=== PATIENT | male | born 1955 | race Caucasian/White ===

== ENCOUNTER 2018-09-10 12:22 | Inpatient (IN) ==
[2018-09-10] MEDS ORDERED: MORPHINE IV ONE ×2 (12:41→14:25)
[2018-09-10 12:53] LABS: BASO# 0.03 X1000 (0.0-0.2); BASO% 0.4 % (0.0-0.8); EOS# 0.06 X1000 (0.0-0.7); EOS% 0.8 % (0.0-10.0); HEMATOCRIT 41.4 % (42.0-52.0); HEMOGLOBIN 14.3 g/dL (14.0-18.0); IMM GRAN# 0.04 X1000 (0.0-0.04); IMM GRAN% 0.5 % (0.0-0.5); MCH 29.9 PG (27-31); MCHC 34.5 g/dL (33-37); MCV 86.6 FL (81-99); MONO# 0.56 X1000 (0.11-0.59); MONO% 7.4 % (1.7-9.3); MPV 8.7 FL (7.4-10.4); NEUT# 4.39 X1000 (1.4-6.5); NEUT% 57.9 % (42.2-75.2); PLT 230 X1000 (130-400); RBC 4.78 XMIL (4.7-6.1); RDW 12.9 % (11.5-14.5); WBC 7.58 X1000 (4.8-10.8)
[2018-09-10] MEDS ORDERED: NS 1,000 ML IV ONE ×3 (12:53→16:55)
[2018-09-10 13:04] LABS: INR 0.95; PROTIME 13.4 Seconds (11.0-16.0); PTT 34.4 Seconds (22.3-41.8)
[2018-09-10 13:14] LABS: AGAP 12; ALB/GLOB RATIO 1.6; ALBUMIN 3.9 g/dL (3.5-5.0); ALKALINE PHOSPHATASE 64 U/L (32-122); BUN 12 mg/dL (8-22); CALCIUM 9.2 mg/dL (8.8-10.2); CHLORIDE 104 mmol/L (98-107); COSMO 280; ESTIMATED GFR > 60; GLUCOSE 106 mg/dL (70-104); GOT 17 U/L (10-34); GPT 12 U/L (10-44); POTASSIUM 4.7 mmol/L (3.5-5.1); SODIUM 140 mmol/L (136-145); TCO2 24 mmol/L (25-35); TOTAL BILIRUBIN 0.31 mg/dL (0.20-1.00); TOTAL PROTEIN 6.3 g/dL (6.3-8.3)
[2018-09-10 13:19] LABS: CK PROFILE 219 U/L (24-204)
[2018-09-10 13:41] LABS: CK INDEX 2.7 (0.0-2.5); CK-MB 6.01 ng/mL (0.0-5.0)
[2018-09-10] MEDS ORDERED: NITROGLYCERIN TOP ONE (14:04)
--- NOTE | 2018-09-10 14:17 | Diag Imaging Result Doc PS360 ---
CHEST-2 VIEWS - 09/10/2018 INDICATION: chest pain COMPARISON: None FINDINGS: There are CABG changes. The lungs are clear. Heart size is normal. No pneumothorax or pleural effusion. IMPRESSION: Negative exam. Electronically signed by Cyrus Pino 09/10/2018 2:15 PM
--- NOTE | 2018-09-10 14:20 | Diag Imaging Result Doc PS360 ---
CT ANGIOGRM PULMONARY ARTERIES - 09/10/2018 INDICATION: chest pain TECHNIQUE: Axial CT images were obtained after administering intravenous contrast. Coronal MIP images were generated. COMPARISON: None FINDINGS: There is no pulmonary embolism. There are CABG changes. No adenopathy. Heart size is normal. Upper abdominal images are unremarkable. There is COPD. Bones are intact. IMPRESSION: COPD. No acute disease. This exam was performed using automated exposure control, adjustment of mA or kV according to patient size, and/or use of iterative reconstruction technique Electronically signed by Cyrus Pino 09/10/2018 2:18 PM
[2018-09-10] MEDS ORDERED: HEPARIN IV ONE (14:22)
[2018-09-10] MEDS ORDERED: HEPARIN 25,000 UNITS/D5W 25,000 UNIT/250 ML IV.SOLN IV SCH (14:30)
--- NOTE | 2018-09-10 15:57 | PROVIDER DOCUMENTATION ---
This chart was entered by Jazzy Jo Scribe, acting as scribe for Jah Bejarano DO. HPI-Chest Pain - General Chief Complaint: Chest Pain Stated Complaint: CP Time Seen by Provider: 09/10/18 12:33 Source: patient Unable to obtain history due to:: other (poor histoorian) Allergies/Adverse Reactions: Patient Allergies Allergy/AdvReac Type Severity Reaction Status Date / Time shellfish derived Allergy HIVES Verified 09/10/18 13:21 Home Medications: Home Medication List Medication Instructions Recorded Confirmed Last Taken Type Warfarin [Coumadin] 10 mg PO QHS 09/10/18 09/10/18 3 Months Ago History ~06/12/18 - History of Present Illness-CP Nature of Presenting Problem: 62 yom presents to the ed with c/o chest pain. rt sided chest pain with no radiation. pt is a poor historian and does not speak much to er physician. pt on exam had a brief syncopal episode that last 3 sec and then pt was back to clutching his rt side of chest. pt is noncompliant with medications because he left all his meds in [place] when he abruptly left with his son. family at bed side sts he had a similar episode like this some months back while in [place]. pt has had no medications for at least 2 months. Location: reports: substernal (rt) Chest Pain Radiation: reports: no radiation Quality of Pain: reports: sharp Severity in ED: severe (03/01) Onset/Duration: unsure Timing: still present Context/Activities at Onset: reports: light activity Modifying Factors: improves with: nothing Associated Symptoms: reports: diaphoresis, syncope (brief intermittent episodes) . denies: back pain Nitro Today/Relief: mild relief (1 inch to chest in ed) Aspirin Treatment Today: 325 mg x 1, provided by ED Prior Chest Pain/Cardiac Workup: reports: cardiac cath, heart attack, stress test, other (stents) Similar Symptoms Previously?: Yes Recently Seen Here or By Another Healthcare Provider: No (not in last 2 months) Review of Systems - Adult - REVIEW OF SYSTEMS - ADULT ROS:: limited per condition (pt is poor historaian) Constitutional: denies: chills, fever Eyes: denies: blurred vision, double vision Ears, Nose, Mouth & Throat: reports: no symptoms reported Cardiovascular: reports: see HPI, chest pain, syncope. denies: palpitations Respiratory: denies: cough, shortness of breath, wheezing Gastrointestinal: denies: abdominal pain, diarrhea, nausea, vomiting Genitourinary: reports: no symptoms reported Musculoskeletal: denies: back pain, neck pain Integumentary: reports: no symptoms reported Neurological: denies: dizziness/vertigo, headache/migraines Psychiatric: reports: no symptoms reported Endocrine: reports: no symptoms reported Hematologic/Lymphatic: reports: no symptoms reported Allergic/Immunologic: reports: no symptoms reported All Other Systems: Reviewed and Negative Past History - Adult - PAST MEDICAL HISTORY-ADULT Review of Records: reports: Nursing Assessment Review, Medications Reviewed Major Childhood Illnesses: reports: denies history Cardiovascular: reports: CAD, HTN, SD. denies: blood clots Respiratory: reports: COPD Gastrointestinal: reports: denies history Genitourinary: reports: denies history Musculoskeletal: reports: denies history Neurological: reports: denies history Psychiatric: reports: denies history Endocrine/Immune: reports: denies history Other Conditions: reports: denies history - PRIOR SURGERIES/PROCEDURES Surgical/Procedure History: reports: CABG - IMMUNIZATION STATUS Childhood Immunizations: See Nurse Assessment Flu Vaccine: See Nurse Assessment - FAMILY HISTORY Family History: reviewed, not pertinent - SOCIAL HISTORY Smoking: cigarettes, greater than 1 pack/day Provider spent 3-5 mins advising pt. on dangers of tobacco.: Discussed manners to quit use, and f/u contacts for add'l counseling. Substance Use: denies Alcohol Use Frequency: never Living Situation: family Physical Exam-General - PHYSICAL EXAM-ADULT Initial Vital Signs Reviewed: Yes - CONSTITUTIONAL General Appearance: alert, moderate distress - EYES Eyes: PERRL/EOMI, pink conjunctivae - HEAD, EARS, NOSE, MOUTH & THROAT HENMT: moist mucous membranes, normal ENT inspection - NECK Neck: non-tender, full range of motion, supple, normal inspection - RESPIRATORY Respiratory: lungs clear, normal breath sounds. negative: chest non-tender (tender to palpation on rt side) - CARDIOVASCULAR Cardiovascular: normal peripheral pulses, regular rate, rhythm - GASTROINTESTINAL (ABDOMEN) Abdominal Exam: normal bowel sounds, non tender, soft - LYMPHATIC Lymphatic: no adenopathy - MUSCULOSKELETAL Back Exam: normal inspection, no CVA tenderness, no vertebral tenderness Extremity: normal range of motion, non-tender, normal inspection, no pedal edema , no calf tenderness, pelvis stable - SKIN Integumentary: normal color, normal turgor, warm/dry - NEUROLOGIC Neurologic: grossly normal, no motor/sensory deficits - PSYCHIATRIC Psych/Mental Status: normal mood/affect, normal thought content, normal thought process - HEART Score HEART Score: History: Highly Suspicious HEART Score: ECG: Non-Specific Repolarization Disturbance/LBBB/PM HEART Score: Age: 45-65 Years HEART Score: Risk Factors for Atherosclerotic Disease: > or = 3 Risk Factors or History of Atherosclerotic Disease HEART Score: Troponin: < or = Normal Limit Total HEART Score:: 6 Progress - PLAN OF CARE/RESULTS Progress/Plan/Lab Results: Vital Signs - 8 hr 09/10/18 12:34 09/10/18 13:26 09/10/18 14:58 Temperature 98 F Pulse Rate 64 57 L 61 Respiratory Rate 24 22 18 Blood Pressure 103/62 107/60 83/66 O2 Sat by Pulse Oximetry 100 98 97 09/10/18 15:03 09/10/18 15:43 Temperature Pulse Rate 57 L 56 L Respiratory Rate 18 14 Blood Pressure 106/56 88/62 O2 Sat by Pulse Oximetry 97 98 Laboratory Results - last 24 hr 09/10/18 09/10/18 09/10/18 12:39 12:39 12:39 WBC 7.58 RBC 4.78 Hgb 14.3 Hct 41.4 L MCV 86.6 MCH 29.9 MCHC 34.5 RDW Std Deviation 12.9 Plt Count 230 MPV 8.7 Immature Gran % (Auto) 0.5 Neut % (Auto) 57.9 Lymph % (Auto) 33.0 [place] % (Auto) 7.4 Eos % (Auto) 0.8 Baso % (Auto) 0.4 Immature Gran # (Auto) 0.04 Neut # (Auto) 4.39 Lymph # (Auto) 2.50 [place] # (Auto) 0.56 Eos # (Auto) 0.06 Baso # (Auto) 0.03 PT INR PTT (Actin FS) Sodium 140 Potassium 4.7 Chloride 104 Carbon Dioxide 24 L Anion Gap 12 BUN 12 Creatinine 1.0 Estimated GFR/1.73 m2 > 60 BUN/Creatinine Ratio 12 Glucose 106 H Calculated Osmolality 280 Calcium 9.2 Total Bilirubin 0.31 AST 17 ALT 12 Alkaline Phosphatase 64 Creatine Kinase 219 H Creatine Kinase Index 2.7 H CK-MB (CK-2) 6.01 H Troponin T [id number]-Khljopfxxdb Pept 189 H Total Protein 6.3 Albumin 3.9 Globulin 2.4 Albumin/Globulin Ratio 1.6 09/10/18 09/10/18 09/10/18 12:39 12:39 14:09 WBC RBC Hgb Hct MCV MCH MCHC RDW Std Deviation Plt Count MPV Immature Gran % (Auto) Neut % (Auto) Lymph % (Auto) [place] % (Auto) Eos % (Auto) Baso % (Auto) Immature Gran # (Auto) Neut # (Auto) Lymph # (Auto) [place] # (Auto) Eos # (Auto) Baso # (Auto) PT 13.4 INR 0.95 PTT (Actin FS) 34.4 Sodium Potassium Chloride Carbon Dioxide Anion Gap BUN Creatinine Estimated GFR/1.73 m2 BUN/Creatinine Ratio Glucose Calculated Osmolality Calcium Total Bilirubin AST ALT Alkaline Phosphatase Creatine Kinase 193 Creatine Kinase Index CK-MB (CK-2) Troponin T < 0.010 Nyp-G-Irlhfkmiwaq Pept Total Protein Albumin Globulin Albumin/Globulin Ratio 09/10/18 14:09 WBC RBC Hgb Hct MCV MCH MCHC RDW Std Deviation Plt Count MPV Immature Gran % (Auto) Neut % (Auto) Lymph % (Auto) [place] % (Auto) Eos % (Auto) Baso % (Auto) Immature Gran # (Auto) Neut # (Auto) Lymph # (Auto) [place] # (Auto) Eos # (Auto) Baso # (Auto) PT INR PTT (Actin FS) Sodium Potassium Chloride Carbon Dioxide Anion Gap BUN Creatinine Estimated GFR/1.73 m2 BUN/Creatinine Ratio Glucose Calculated Osmolality Calcium Total Bilirubin AST ALT Alkaline Phosphatase Creatine Kinase Creatine Kinase Index CK-MB (CK-2) Troponin T < 0.010 [id number]-Bfittqtxaok Pept Total Protein Albumin Globulin Albumin/Globulin Ratio Orders Category Date Time Status Cardiac Monitoring DIRECTED Care 09/10/18 12:44 Active Oxygen Therapy- ED Nursing DIRECTED Care 09/10/18 12:44 Active Saline Loc NOW Care 09/10/18 12:44 Active CHEST-2 VIEWS [RAD] Stat Exams 09/10/18 12:44 Completed CTA [CT ANGIOGRM PULMONARY ARTERIES] [CT] Stat Exams 09/10/18 13:34 Completed CBC WITH ELECTRONIC DIFF [HEME] Stat Lab 09/10/18 12:39 Completed CK PROFILE [SP CHEM] Stat Lab 09/10/18 12:39 Completed CK PROFILE [SP CHEM] Stat Lab 09/10/18 14:09 Completed COMPREHENSIVE METABOLIC PANEL [CHEM] Stat Lab 09/10/18 12:39 Completed PRO B-NATRIURETIC PEPTIDE Stat Lab 09/10/18 12:39 Completed PROTIME WITH INR [COAG] Stat Lab 09/10/18 12:39 Completed PTT [COAG] Stat Lab 09/10/18 12:39 Completed TROPONIN T Stat Lab 09/10/18 12:39 Completed TROPONIN T Stat Lab 09/10/18 14:09 Completed 0.9% Sodium Chloride Inj [Ns] 1,000 ml Med 09/10/18 14:05 Active IV 250 mls/hr 0.9% Sodium Chloride Inj [Ns] 1,000 ml Med 09/10/18 12:53 Discontinued IV 999 mls/hr Heparin Med 09/10/18 14:22 Discontinued 5,000 unit IV NOW ONE Heparin 25,000 Units/D5w Med 09/10/18 14:30 Active 25,000 unit in 250 ml IV 7.9 mls/hr Morphine Med 09/10/18 12:41 Discontinued 4 mg IV NOW ONE Morphine Med 09/10/18 14:25 Discontinued 4 mg IV NOW ONE Nitroglycerin Med 09/10/18 14:04 Discontinued 1 inch TOP NOW ONE CP/SOB/Palp >45 yrs of Age Stat Oth 09/10/18 12:44 Ordered EKG [EKG] Stat Ther 09/10/18 12:44 Ordered EKG [EKG] Stat Ther 09/10/18 13:54 Ordered Result Diagrams: 09/10/18 12:39 09/10/18 12:39 - REASSESSMENT Reassessment #1 Time Reassessed: 13:13 (pt is resting in bed at this time in no distress) Status: improving Reassessment Comment: at bedside Reassessment #2 Time Reassessed: 14:45 (pt is resting in bed) Status: unchanged Reassessment Comment: @ bedside Reassessment #3 Time Reassessed: 15:52 (pt is awake in lying in bed) Status: unchanged - EKG 1 Time of EKG reading by physician:: 12:28 EKG Read and Signed by:: Jah Bejarano EKG Interpretation (*Must complete 3 of following elements*): Abnormal Rate: 72 Rhythm: nsr [place]: normal QRS: normal MN Interval: normal ST Wave: normal Comments: nonspecific T wave abnormlity 2 Time of EKG reading by physician:: 14:13 EKG Read and Signed by:: Jah Bejarano EKG Interpretation (*Must complete 3 of following elements*): Abnormal Rate: 70 Rhythm: nsr with sinus arrhythmia [place]: normal QRS: normal MN Interval: normal ST Wave: normal Comments: possible anterior infarct, age undetermined - XRAY 1 XRAY: Bilateral XRAY Study: Chest Impression: See EMR Report (CHEST-2 VIEWS - 09/10/2018 INDICATION: chest pain COMPARISON: None FINDINGS: There are CABG changes. The lungs are clear. Heart size is normal. No pneumothorax or pleural effusion. IMPRESSION: Negative exam. Electronically signed by Cyrus Pino 09/10/2018 2:15 PM 09/10/18 1415 Interpreting Physician: Cyrus Pino MD Dictated Date/Time: 09/10/18 1414 cc: Jah Bejarano DO;) - CT/MRI 1 CT Study: Angiogram Impression: See EMR Report (CT ANGIOGRM PULMONARY ARTERIES - 09/10/2018 INDICATION: chest pain TECHNIQUE: Axial CT images were obtained after administering intravenous contrast. Coronal MIP images were generated. COMPARISON: None FINDINGS: There is no pulmonary embolism. There are CABG changes. No adenopathy. Heart size is normal. Upper abdominal images are unremarkable. There is COPD. Bones are intact. IMPRESSION: COPD. No acute disease. This exam was performed using automated exposure control, adjustment of mA or kV according to patient size, and/or use of iterative reconstruction technique Electronically signed by Cyrus Pino 09/10/2018 2:18 PM 09/10/18 1418 Interpreting Physician: Cyrus Pino MD Dictated Date/Time: 09/10/18 1416 cc: Jah Bejarano DO; None,PCP) - CONSULTS/PCP/HOSPITALIST Notification #1 *Consult/PCP/Hospitalist*: hospitalist dr carmen Time Discussed: 15:51 Consult Disposition: Admit Departure - Departure Date of Disposition Decision: 09/10/18 Time of Disposition Decision: 15:56 DIAGNOSIS: Chest pain, Tobacco use disorder Disposition: ADMITTED INPATIENT 09 Certified Medical Emergency: Emergent Condition: Serious Referrals and Follow-Ups: None,PCP [Primary Care Provider] - - Critical Care Note This patient required my direct & personal management of CC.: Yes Total Time (mins): 32 Critical Care Statement: This patient required my direct personal management to treat or rule out processes, the absence of which, could potentiallly result in sudden, clinically significant life or limb threatening deterioration. Attestation - Physician/ NAHUN Attestation Patient care was provided by Advanced Practice Provider:: No The physician spent face to face time with patient:: Yes Advanced Practice Provider documentation review:: Supervising physician onsite and consulted in the evaluation and care of this patient. The physician did have a face to face encounter with the patient. This chart was documented by the indicated scribe, (Jazzy Jo Scribe) and accurately reflects the services I performed and decisions made by me, Jah Bejarano DO, as attested by the provider's signature.
[2018-09-10] MEDS ORDERED: DUONEB (A & A) INH PRN (16:55)
[2018-09-10] MEDS ORDERED: TYLENOL PO PRN (16:55)
[2018-09-10] MEDS ORDERED: ZOFRAN IV PRN (16:58)
[2018-09-10] MEDS: NICODERM PATCH TD SCH (17:00)
[2018-09-10 17:14] LABS: URINE SOURCE CLEAN CATCH
[2018-09-10 17:19] LABS: BILIRUBIN URINE NEGATIVE (NEGATIVE); BLOOD URINE NEGATIVE (NEGATIVE); COLOR YELLOW; GLUCOSE URINE NEGATIVE (NEGATIVE); KETONE URINE NEGATIVE (NEGATIVE); LEUKOCYTES URINE SMALL (NEGATIVE); NITRITE URINE NEGATIVE (NEGATIVE); PH URINE 5.5; PROTEIN URINE NEGATIVE (NEGATIVE); SP GRAVITY URINE 1.034; TURBIDITY URINE CLEAR (CLEAR); UROBILINOGEN URINE NORMAL (NORMAL)
[2018-09-10 17:20] LABS: UR EPITHELIAL CELLS <10 /HPF (<10); URINE BACTERIA NEGATIVE /HPF; URINE RBC <10 /HPF (<10); URINE WBC <10 /HPF (<10)
[2018-09-10 17:23] LABS: ALLEN TEST YES; BE 0.1 mmoll (-3.0-3.0); BLOOD TYPE ARTERIAL; HCO3-(ACT) 24.9 mmoll (20.0-26.0); METHB 1.3 % (0.0-1.5); MODALITY CANNULA; O2(CT) 16.7 mL/dL (15.0-23.0); O2HB 92.7 % (95.0-99.0); PCO2(98.6) 43 mmHg (35-45); PO2(98.6) 97 mmHg (60-100); SAMPLE BLOOD; SAO2 98.6 % (95.0-100.0); THB 12.7 g/dL (11.5-17.4); pH(98.6) 7.38 (7.35-7.45)
--- NOTE | 2018-09-10 17:32 | HISTORY AND PHYSICAL ---
PRIMARY CARE PHYSICIAN: None. CHIEF COMPLAINT: Syncope and chest pain. HISTORY OF PRESENT ILLNESS: Mr. Sifuentes is a 62-year-old male with a history of severe vasculopathy, reported severe CAD with multiple myocardial infarctions, stenting, and CABG x2, peripheral vascular disease with peripheral stents, PE, stroke with residual mild right-sided weakness, and nicotine dependence with profound medical noncompliance. He presents today because apparently his neighbor saw him passed out in the driveway of his home. At that time his neighbor called 911 and came to the patient's residence. The patient himself said he stepped outside to smoke a cigarette in his driveway and that is the last thing he remembered. He does not know how long he was out for, but when he awoke he started having severe right sternal border chest pain radiating around his chest, mainly down to the right. He has some shortness of breath and cough with occasional sputum but no fever. No nausea or vomiting. No abdominal pain. No lower extremity edema. He reports that he hit the back of his head and the back of his right shoulder but is unsure if he had any chest trauma. When he arrived at the ER he had labs and diagnostics done. An EKG showed normal sinus rhythm with nonspecific T changes. A chest x-ray was negative. A CTA of the chest showed COPD but no acute changes. His laboratory data is unremarkable with the exception of a mildly elevated CK-MB and proBNP of 189, otherwise no acute findings there. He has been started on a heparin drip by the ER, however given the fact that he had syncope and head trauma, we are going to stop that and do a STAT head CT. His vital signs are stable. He will go to the CICU for further treatment and evaluation. PAST MEDICAL HISTORY: 1. CVA with residual right-sided weakness. 2. Severe CAD, status post myocardial infarctions, stenting, and CABG. The last reported intervention was 2012, per his report. 3. PE. 4. COPD. 5. Nicotine dependence. 6. Severe peripheral vascular disease. PAST SURGICAL HISTORY: He has had multiple stents placed, CABG x2, right arm surgery. SOCIAL HISTORY: He smokes one-half pack per day but he reports he used to smoke up to five packs of cigarettes a day. Denies alcohol or drug use. He is . He recently left [place] around three months ago and what appears to be some type of unsafe environment. He has not taken his medicines since that time and does not remember what medicines he is supposed to be on. FAMILY HISTORY: Noncontributory. REVIEW OF SYSTEMS: A 14-point review of systems was obtained and found to be negative with the exception of the HPI. MEDICATIONS: None currently. ALLERGIES: Shellfish. PHYSICAL EXAMINATION: VITAL SIGNS: Blood pressure 109/56, heart rate 60, respiratory rate 13, O2 saturation 100% on nasal cannula. Temperature 98 degrees Fahrenheit. GENERAL: This is a chronically ill and disheveled appearing 62-year-old male lying in the hospital bed in no acute distress. NEUROLOGIC: He is oriented. He follows commands. He has a very residual right upper and lower extremity weakness, 4/5 compared to 5/5 on the left. There are no other focal deficits noted. HEENT: Head is atraumatic and normocephalic. Pupils are equal, round and reactive to light. Oral mucosa is dry. NECK: Trachea is midline. There is no JVD. CHEST: Diminished at the bases with very faint expiratory wheezes. He does have an abrasion over his right shoulder. GASTROINTESTINAL: Soft. Nondistended. Nontender. Bowel sounds are active. EXTREMITIES: No edema. Pulses are 1+ bilaterally. DIAGNOSTIC DATA: Chest x-ray - negative exam. CTA shows COPD but nothing acute. EKG shows sinus rhythm with nonspecific ST changes. WBC 7.58, hemoglobin 14.3, hematocrit 41.4, platelet count 230. INR 0.95. Sodium 140, potassium 4.7, chloride 104, CO2 24, anion gap 12, BUN 12, creatinine 1, glucose 106, AST 17, ALT 12, alkaline phosphatase 64. Troponin negative x2 sets. proBNP 189. Albumin 3.9. ASSESSMENT AND PLAN: 1. Syncope: Unclear as to the circumstances or etiology at this time. He is complaining of fairly severe right-sided chest pain but the CTA is negative for any intrathoracic or intrapulmonary injury. His symptoms are atypical for myocardial infarction, however he has a severe coronary history with medical noncompliance. It is possible he has some right chest wall trauma, but he has no real tenderness to palpation over the chest wall. There is no aortic aneurysm or aortic dissection on CTA and there is no acute lung injury. Will check a STAT head CT and stop his heparin. Check an echo and carotid ultrasound. Consult Cardiology. Continue to trend cardiac enzymes. 2. Chest pain: As stated previously, very atypical in nature. Will continue to trend his cardiac enzymes. Consult Cardiology and make sure he has aspirin once his head CT is deemed negative. 3. History of pulmonary embolus: CTA is negative for pulmonary embolus. Will hold the heparin for now until we can get a more complete history. 4. Chronic obstructive pulmonary disease: Will add breathing treatments and aggressive pulmonary toilet. Incentive spirometry. 5. History of severe vascular disease: We are checking a carotid ultrasound and echo. His pulses are palpable are in all of his extremities. Will make sure he is on aspirin once his head CT is deemed negative. 6. Nicotine dependence: Will write a nicotine patch. Continue cessation education. 7. Deep venous thrombosis prophylaxis with sequential compression devices. Further recommendations to follow. Dictated by LIZA Seaman for Lorrie Gauthier MD cc: LIZA Seaman MD I performed a face to face encounter on the patient. I reviewed all labs and imaging on the patient. I agree with the H&P as dictated. The patient presented to the ER after having chest pain and a syncopal episode. On exam, the patient was noted to be alert and oriented x 4. His heart sounds were normal. His breath sounds were clear to auscultation bilaterally. The patient will be admitted to CICU. The work up will be ordered as dictated in the assessment and plan. JUVENTINO
[2018-09-10 17:34] LABS: UR AMPHETAMINES QUAL NONE DETECTED (NONE DETECT); UR BARBITUATES QUAL NONE DETECTED (NONE DETECT); UR BENZODIAZEPIN QUAL NONE DETECTED (NONE DETECT); UR CANNABINOIDS QUAL NONE DETECTED (NONE DETECT); UR COCAINE QUAL NONE DETECTED (NONE DETECT); UR METHADONE QUAL NONE DETECTED (NONE DETECT); UR OPIATES QUAL PRESUMPTIVE POSITIVE (NONE DETECT); UR OXYCODONE QUAL NONE DETECTED (NONE DETECT); UR PCP QUAL NONE DETECTED (NONE DETECT)
--- NOTE | 2018-09-10 18:45 | Diag Imaging Result Doc PS360 ---
CT HEAD W/O CONTRAST - 09/10/2018 INDICATION: syncope, head trauma COMPARISON: None FINDINGS: The ventricles and sulci are normal in size and contour. No intracranial mass or hemorrhage. The skull is intact. The sinuses mastoids and middle ears are clear. IMPRESSION: Negative exam. This exam was performed using automated exposure control, adjustment of mA or kV according to patient size, and/or use of iterative reconstruction technique Electronically signed by Cyrus Pino 09/10/2018 6:42 PM
[2018-09-10] MEDS: DUONEB (A & A) INH SCH ×2 (19:17→23:22)
[2018-09-10] MEDS: MORPHINE IV PRN (20:45)
[2018-09-11] MEDS: MORPHINE IV PRN ×4 (00:45→14:38)
[2018-09-11] MEDS: DUONEB (A & A) INH SCH ×6 (03:15→23:17)
[2018-09-11 05:28] LABS: BASO# 0.03 X1000 (0.0-0.2); BASO% 0.5 % (0.0-0.8); EOS# 0.13 X1000 (0.0-0.7); EOS% 2.2 % (0.0-10.0); HEMATOCRIT 36.8 % (42.0-52.0); HEMOGLOBIN 12.2 g/dL (14.0-18.0); IMM GRAN# 0.02 X1000 (0.0-0.04); IMM GRAN% 0.3 % (0.0-0.5); LYMPH% 47.9 % (20.5-51.1); MCH 29.8 PG (27-31); MCHC 33.2 g/dL (33-37); MCV 89.8 FL (81-99); MONO# 0.34 X1000 (0.11-0.59); MONO% 5.8 % (1.7-9.3); MPV 8.9 FL (7.4-10.4); NEUT# 2.53 X1000 (1.4-6.5); NEUT% 43.3 % (42.2-75.2); PLT 185 X1000 (130-400); RDW 13.1 % (11.5-14.5); WBC 5.85 X1000 (4.8-10.8)
[2018-09-11 05:36] LABS: INR 0.99; PROTIME 13.9 Seconds (11.0-16.0)
[2018-09-11 06:15] LABS: FREE T4 1.12 ng/dL (0.93-1.70)
[2018-09-11 06:33] LABS: TSH 5.72 uIUmL (0.27-4.20)
[2018-09-11 07:10] LABS: AGAP 12; BUN 10 mg/dL (8-22); CALCIUM 8.7 mg/dL (8.8-10.2); CHLORIDE 106 mmol/L (98-107); CK PROFILE 147 U/L (24-204); COSMO 283; CREATININE 0.9 mg/dL (0.7-1.2); ESTIMATED GFR > 60; GLUCOSE 108 mg/dL (70-104); POTASSIUM 4.3 mmol/L (3.5-5.1); SODIUM 142 mmol/L (136-145); TCO2 24 mmol/L (25-35)
--- NOTE | 2018-09-11 07:16 | EKG Report ---
Test Performed on : 09/11/2018 06:48:02 AM Test Reason : chest pain Blood Pressure : / mmHG Vent. Rate : 059 BPM Atrial Rate : 059 BPM P-R Int : 158 ms QRS Dur : 082 ms QT Int : 442 ms P-R-T Axes : 072 070 080 degrees QTc Int : 437 ms Sinus bradycardia. with sinus arrhythmia. Otherwise normal ECG When compared with ECG of 10-SEP-2018 14:13, (Unconfirmed) No significant change was found Confirmed by Kandy PACHECO, Reinaldo ([id number]) on 09/11/2018 9:01:04 AM
--- NOTE | 2018-09-11 08:27 | EKG Report ---
Test Performed on : 09/10/2018 2:13:16 PM Test Reason : chest pain Blood Pressure : / mmHG Vent. Rate : 070 BPM Atrial Rate : 070 BPM P-R Int : 156 ms QRS Dur : 066 ms QT Int : 422 ms P-R-T Axes : 072 072 043 degrees QTc Int : 455 ms Normal sinus rhythm. with sinus arrhythmia. Possible Anterior infarct , age undetermined Abnormal ECG When compared with ECG of 10-SEP-2018 12:28, (Unconfirmed) No significant change was found Unconfirmed Result
--- NOTE | 2018-09-11 08:51 | EKG Report ---
Test Performed on : 09/10/2018 12:28:14 PM Test Reason : chest pain Blood Pressure : / mmHG Vent. Rate : 072 BPM Atrial Rate : 072 BPM P-R Int : 148 ms QRS Dur : 080 ms QT Int : 422 ms P-R-T Axes : 071 074 058 degrees QTc Int : 462 ms Normal sinus rhythm. Nonspecific T wave abnormality Abnormal ECG No previous ECGs available Unconfirmed Result
[2018-09-11] MEDS ORDERED: PROTONIX IV ONE (09:00)
[2018-09-11] MEDS ORDERED: SODIUM CHLORIDE 0.9% INJ ONE (09:00)
[2018-09-11] MEDS: NICODERM PATCH TD SCH (09:04)
[2018-09-11] MEDS: ASPIRIN PO SCH (09:04)
[2018-09-11] MEDS ORDERED: SODIUM CHLORIDE 0.9% INJ PRN (09:26)
[2018-09-11] MEDS ORDERED: G.I. COCKTAIL PO ONE (09:26)
[2018-09-11] MEDS: CARAFATE LIQUID PO SCH ×3 (10:11→21:49)
--- NOTE | 2018-09-11 13:17 | ECHO REPORT ---
ORDER DATE: 09/10/2018 ECHOCARDIOGRAPHIC MEASUREMENTS: 1. Interventricular septum 1.2. 2. Left ventricular posterior wall 1.2. 3. Diastolic diameter 4.1. 4. Left atrium 4.1. 5. Aorta 3.1. SUMMARY OF 2-DIMENSIONAL IMAGIN. There is left atrial enlargement. 2. Aortic valve leaflets are trileaflet. 3. Mitral valve was normal. 4. Tricuspid valve was normal. Pulmonic valve was normal. 5. There is mild mitral regurgitation. 6. Mild tricuspid regurgitation. Peak velocity across the tricuspid valve was 2.3 m/sec. Pulmonary artery systolic pressure of 26 mmHg. 7. There is mild pulmonary regurgitation. 8. Technically suboptimal study. Definity was used to assess left ventricular systolic function. Normal left ventricular cavity size. Estimated ejection fraction of 50% to 55%. There is anteroseptal hypokinesis. 9. There is no pericardial effusion or obvious intracardiac mass or thrombus seen. cc: MD Miguel Rausch CRNP
--- NOTE | 2018-09-11 14:44 | CONSULTATION ---
DATE OF CONSULTATION: 09/11/2018 IMPRESSION: 1. Atypical chest pain. 2. Recent syncopal episode. 3. Atherosclerotic coronary disease with history of previous coronary bypass grafting 15 years ago and redo coronary bypass grafting in 2012. 4. Severe chronic obstructive pulmonary disease requiring chronic home oxygen. 5. Peripheral vascular disease. 6. Chronic heavy smoking. ALLERGIES: He is allergic or intolerant to shellfish. RECOMMENDATIONS: 1. Telemetry observation. 2. Followup echocardiography. 3. Lexiscan sestamibi study. 4. Smoking cessation strongly advised. HISTORY: This 62-year-old white male with past history of previous coronary bypass grafting more than 15 years ago and redo coronary bypass grafting in 2013, peripheral vascular disease, severe COPD, previous cerebrovascular accident, chronic heavy cigarette use, and medical noncompliance was admitted through the emergency room yesterday around midday. He relates that yesterday he went outside to smoke a cigarette. As he started to smoke cigarette he started to feel lightheaded. He believes he may have passed out momentarily. He reports some right-sided constant sharp chest pain. Discomfort is not pleuritic nor positional. Discomfort has pretty much been continual. He was brought to the hospital by EMS. He has continued to have right-sided chest discomfort. He has history of chronic heavy cigarette use and as of a few months ago was smoking 5 packs of cigarettes per day. He has been on home oxygen which was initiated earlier this year in [place] where he previously lived. He has been out of his medications. PAST MEDICAL HISTORY: 1. Atherosclerotic coronary disease. Patient is status post previous coronary bypass grafting more than 15 years ago and redo coronary bypass grafting in 2012. 2. Previous cerebrovascular accident with residual mild right-sided weakness. 3. Chronic obstructive pulmonary disease. 4. Chronic heavy cigarette use. 5. Severe peripheral vascular disease. 6. He is allergic or intolerant to shellfish. 7. Medications prior to admission as listed. He is currently only taking warfarin prior to admission. 8. History of hyperlipidemia. SOCIAL HISTORY: He has history of longstanding heavy cigarette use and had smoked up to 5 packs of cigarettes a day just a few months ago but has currently cut down to 1/2 pack of cigarettes per day. Denies alcohol or drug use. He is . He previously worked as a truck dock material mover. He was previously residing in [place] but left there a few months ago to come to this area. FAMILY HISTORY: Positive for coronary disease. REVIEW OF SYSTEMS: Pulmonary: Noteworthy for chronic cough which is increased of late. There has been very little sputum production. He has chronic dyspnea. He is on home oxygen for severe COPD. Gastrointestinal: Negative. Constitutional: Negative. Remainder review of systems negative/noncontributory with 14 total systems reviewed. PHYSICAL EXAMINATION: General: This is an older middle-aged white male in no distress who appears considerably older than stated age. Vital signs: Blood pressure 103/57, heart rate 86, oxygen saturation 100% on nasal cannula oxygen. HEENT: Extraocular movements intact. Mucous membranes are moist. Neck: Supple without jugular venous distention. No carotid bruits. Chest: Clear to auscultation with somewhat diminished breath sounds diffusely. Cardiac: Reveals a regular rate and rhythm with somewhat distant heart sounds. No murmur or gallop could be appreciated. Abdomen: Soft. Bowel sounds are normal. Extremities: Without edema. DATA: Twelve lead EKG demonstrates sinus rhythm with sinus arrhythmia and abnormal precordial R- wave progression, cannot exclude previous anteroseptal infarct. LABORATORY DATA: Includes white blood cell count of 5.85, hematocrit 36.8, hemoglobin 12.2, platelet count 185,000. Sodium 142, potassium 4.3, chloride 106, carbon dioxide 24, BUN 10, creatinine 0.9, magnesium 1.9. Initial troponin less than 0.01. Followup troponin less than 0.01. Triglycerides 111, cholesterol 137, LDL cholesterol 90, VLDL cholesterol 22, HDL cholesterol 33, TSH 5.7, free T4 1.1. cc: Marty Kessler MD
--- NOTE | 2018-09-11 15:47 | PROGRESS NOTE ---
DATE: 09/11/2018 SUBJECTIVE: The patient is complaining of chest pain this morning. He describes it as a burning and stabbing pain at the same time. OBJECTIVE: Vital Signs: Temperature 97.6, blood pressure 103/57, heart rate 86, respirations 15. O2 sats 100% on 2 L nasal cannula. General: This is a chronically ill- appearing elderly male sitting up in bed in no acute distress. Heart: S1, S2 normal. Lungs: Clear to auscultation bilaterally. Abdomen: Positive bowel sounds. Soft, nontender, nondistended. Extremities: No edema, no cyanosis. Neurologic: The patient is alert and oriented x 4. LABS: Sodium 142, potassium 4.3, magnesium 1.9, BUN 10, creatinine 0.9 glucose 108. TSH 5.7, free T4 1.1, LDL 90. Troponin less than 0.01. ASSESSMENT AND PLAN: 1. Syncope. The patient has been assessed by the business practices supervisor and is scheduled to have a stress test tomorrow. We will continue to monitor on telemetry. 2. Chest pain. The patient's cardiac enzymes were negative. Will await the results of the stress test scheduled for tomorrow. 3. GERD. The patient has been started on Protonix and Carafate. 4. Tobacco dependence. The patient has been counseled about smoking cessation. 5. Coronary artery disease status post coronary artery bypass graft. Continue on the current cardiac medications. 6. DVT prophylaxis. Will start the patient on Lovenox. cc: Lorrie Gauthier MD MTDD
[2018-09-11] MEDS: LOVENOX SUBQ SCH (15:51)
[2018-09-11] MEDS: PROTONIX IV SCH (21:49)
[2018-09-12] MEDS: DUONEB (A & A) INH SCH ×6 (03:26→23:12)
[2018-09-12] MEDS: CARAFATE LIQUID PO SCH ×5 (03:38→22:07)
[2018-09-12] MEDS: MORPHINE IV PRN (03:46)
[2018-09-12 05:24] LABS: HEMATOCRIT 39.4 % (42.0-52.0); HEMOGLOBIN 12.9 g/dL (14.0-18.0); MCH 29.8 PG (27-31); MCHC 32.7 g/dL (33-37); MPV 8.6 FL (7.4-10.4); RBC 4.33 XMIL (4.7-6.1); RDW 13.1 % (11.5-14.5); WBC 7.01 X1000 (4.8-10.8)
[2018-09-12 05:32] LABS: INR 0.95; PROTIME 13.4 Seconds (11.0-16.0)
[2018-09-12 05:42] LABS: AGAP 3; BUN 8 mg/dL (8-22); CHLORIDE 102 mmol/L (98-107); COSMO 274; ESTIMATED GFR > 60; GLUCOSE 94 mg/dL (70-104); MAGNESIUM 1.8 mg/dL (1.5-2.7); SODIUM 138 mmol/L (136-145); TCO2 33 mmol/L (25-35)
[2018-09-12] MEDS ORDERED: LEXISCAN ONE (07:29)
[2018-09-12] MEDS: NICODERM PATCH TD SCH (10:09)
[2018-09-12] MEDS: ASPIRIN PO SCH (10:09)
[2018-09-12] MEDS: PROTONIX IV SCH ×3 (10:09→22:07)
[2018-09-12] MEDS ORDERED: DILAUDID IV ONE (11:35)
[2018-09-12] MEDS ORDERED: G.I. COCKTAIL PO ONE (11:44)
--- NOTE | 2018-09-12 12:05 | PROGRESS NOTE ---
DATE: 09/12/2018 SUBJECTIVE: The patient is still describing chest pain. OBJECTIVE: Blood pressure 102/61, heart rate 66, respiratory rate 17, temperature 98.4 degrees, 97% on 3 L. Cardiovascular: Regular rate and rhythm. Pulmonary: Bilateral breath sounds clear to auscultation. GI: Soft, nontender, nondistended. Bowel sounds were positive. Laboratory Data: White count 7, hemoglobin and hematocrit 12 and 39, platelets 182,000. INR 0.95. PROBLEM LIST: 1. Syncope. We will continue to follow. Cardiology has seen the patient. He is getting a stress test today. I think he has had an echocardiogram and he has had carotid. The echocardiogram, I think it has been dictated but I do not have the report. 2. Chronic obstructive pulmonary disease, appears to be somewhat decompensated. We will continue breathing treatments and follow. DISPOSITION: Pending her clinical status. We will continue to monitor. Anticipate possible discharge soon but we will continue to follow. cc: Christopher Olson MD
[2018-09-12] MEDS: LOVENOX SUBQ SCH (14:43)
--- NOTE | 2018-09-12 15:54 | Diag Imaging Result Document ---
PROCEDURE NAME: MYOCARDIAL PERF SCAN, STR/REST - 09/12/2018 LEXISCAN SESTAMIBI INTERPRETATION: SUMMARY: The patient was studied using a two-day protocol. Patient underwent resting sestamibi study on 09/11/2018. The patient was administered 26.5 mCi of technetium-99m sestamibi, after which resting cardiac images were obtained. The patient returned for Lexiscan sestamibi study on 09/12/2018. The patient was administered Lexiscan 0.4 mg intravenously after which the heart rate went from 76 beats per minute to 110 beats per minute and the blood pressure went from 102/59 to 92/57. During the study the patient reported persistent atypical right-sided chest discomfort. There was no new chest discomfort with Lexiscan. Following the administration of Lexiscan, the patient was administered 27.1 mCi of technetium-99m labeled sestamibi after which gated stress cardiac images were obtained. Baseline ECG demonstrates sinus rhythm and nonspecific ST and T-wave abnormality. With Lexiscan, baseline ST and T-wave abnormality did not change significantly. SPECT images were reconstructed in the short, horizontal long, and vertical long axis. Review of these images demonstrated no scintigraphic evidence of inducible myocardial ischemia or prior infarct. Gated images demonstrate a calculated left ventricular ejection fraction of 62% with symmetrical wall motion. CONCLUSIONS: 1. Adequate response to Lexiscan. 2. Clinically, patient's baseline atypical chest pain did not change with exercise. There was no new chest pain with Lexiscan. 3. Electrocardiographically, baseline ST and T-wave abnormality did not change significantly with Lexiscan. 4. Lexiscan sestamibi images demonstrate no scintigraphic evidence of inducible myocardial ischemia. Normal left ventricular systolic function demonstrated. cc: Marty Kessler MD
--- NOTE | 2018-09-12 16:20 | PROGRESS NOTE ---
DATE: 09/12/2018 SUBJECTIVE: Patient continues to complain of constant right anterior chest discomfort. On further questioning, he relates this has been going on for several months. He can identify no precipitating or relieving factors. He had episode of lightheadedness as he was being moved via wheelchair. Blood pressure was checked and was low with systolic blood pressure 90 according to the staff. There were no arrhythmias documented. He has had more than 40 pounds weight loss over the past 6 months. He cut down on cigarette use over the past 6 months from 5 packs a day to now 1/2 pack a day. He has had no problems with diet affecting his chest pain. OBJECTIVE: Vital Signs: Blood pressure 91/50 to 102/61, heart rate 66 to 77, oxygen saturation 95 to 97 percent. Neck: There is no significant jugular venous distention. Chest: Clear to auscultation. Cardiac Exam: Reveals a regular rate and rhythm without appreciable murmur or gallop. Abdomen: Nontender. Extremities: Without edema. LABORATORY DATA: Includes a white blood cell count of 7.01, hematocrit 39.4, hemoglobin 12.9, platelet count 182. Sodium 138, potassium 4.0, chloride 102, carbon dioxide 33, BUN 8, creatinine 1.0. X-RAY DATA: Echocardiography reports left ventricular ejection fraction of 50% to 55%. Lexiscan sestamibi study negative for evidence of inducible myocardial ischemia. Normal left ventricular systolic function demonstrated. IMPRESSION: 1. Atypical chest pain. Given negative troponins despite constant nature of atypical pain and negative stress myocardial perfusion study, suspect his chest discomfort is noncardiac in origin. 2. Recent syncopal episode. No arrhythmia is documented. He did have an episode of lightheadedness with relatively lower blood pressure. This may potentially related to postural hypotension. 3. Atherosclerotic coronary disease with previous coronary bypass grafting 15 years ago and redo coronary bypass grafting in 2012. 4. Severe chronic obstructive pulmonary disease requiring chronic home oxygen. 5. Peripheral vascular disease. 6. Chronic heavy smoking. RECOMMENDATIONS: 1. Medical management of patient's coronary atherosclerosis. 2. Coronary risk factor modification with smoking cessation strongly encouraged. 3. Consider alternative etiologies for the patient's chest discomfort. He has also had a chest CT scan which was negative. Consider abdominal ultrasound. 4. Reasonable for patient to be discharged to home soon from a cardiovascular standpoint. cc: Marty Kessler MD
--- NOTE | 2018-09-12 17:34 | Carotid Study ---
DATE: 09/11/2018 PROCEDURE: Bilateral carotid duplex imaging. REFERRING PHYSICIAN: LIZA Martin INTERPRETING PHYSICIAN: Lorenzo Martinez MD TECH: [place]. INDICATIONS: Coronary artery disease with CVA and syncope. OBSERVED DATA RIGHT LEFT Brachial Blood Pressure Carotid Pulse Bruits: Carotid/Sub DIAGRAM OF ULTRASOUND IMAGING R L RIGHT INT EXT INT EXT LEFT Amadro (cm/s) [place] (cm/s) Subclavian 85/0 Subclavian 92/0 CCA Proximal 116/24 CCA Proximal 108/29 CCA Distal 96/20 CCA Distal 103/22 Bulb 86/18 Bulb 64/15 ICA Proximal 80/33 ICA Proximal 55/15 ICA Mid 89/30 ICA Mid 79/27 ICA Distal 70/32 ICA Distal 76/31 ECA 89/7 ECA 89/6 Vertebral 35/11 A Vertebral 36/14 A ICA/CCA Ratio 0.77 ICA/CCA Ratio 0.73 % Stenosis 0-39 % Stenosis 0-39 FINDINGS: In the carotid bulb, there is a broad-based plaque seen in the proximal internal carotid artery. This does not cause hemodynamic changes in the flow and would correlate to mild stenosis. SUMMARY: Mild stenosis on the right, no significant atherosclerotic changes on the left. cc: MD Miguel Sharma CRNP
[2018-09-12] MEDS: DILAUDID IV PRN ×2 (19:18→22:13)
[2018-09-13] MEDS: CARAFATE LIQUID PO SCH ×3 (02:13→08:49)
[2018-09-13] MEDS: DILAUDID IV PRN (02:13)
[2018-09-13] MEDS: DUONEB (A & A) INH SCH ×4 (04:03→15:21)
[2018-09-13 05:47] LABS: HEMOGLOBIN 12.5 g/dL (14.0-18.0); MCHC 32.9 g/dL (33-37); MCV 91.1 FL (81-99); MPV 9.1 FL (7.4-10.4); RBC 4.17 XMIL (4.7-6.1); WBC 7.04 X1000 (4.8-10.8)
[2018-09-13 05:54] LABS: INR 0.88; PROTIME 12.7 Seconds (11.0-16.0)
[2018-09-13] MEDS: NICODERM PATCH TD SCH (08:49)
[2018-09-13] MEDS: ASPIRIN PO SCH (08:49)
[2018-09-13] MEDS: PROTONIX IV SCH (08:49)
[2018-09-13] MEDS ORDERED: ULTRAM PO PRN (10:11)
[2018-09-13] MEDS ORDERED: NS 1,000 ML IV ONE (11:21)
[2018-09-13 11:49] VITALS: BP 110/79
--- NOTE | 2018-09-13 15:09 | Diag Imaging Result Doc PS360 ---
US ABDOMEN-COMPLETE - 09/13/2018 INDICATION: chest pain COMPARISON: None FINDINGS: There is extensive bowel gas. This obscures the pancreas. The liver, gallbladder, spleen, and both kidneys are normal. Common bile duct measures 5 mm. Spleen size is 11 x 11.1 x 4.2 cm. No free fluid. Aorta, IVC, and main portal vein are patent. IMPRESSION: Negative exam. Electronically signed by Cyrus Pino 09/13/2018 3:07 PM
--- NOTE | 2018-09-24 22:03 | DISCHARGE SUMMARY ---
ADMISSION DATE: 09/11/2018 DISCHARGE DATE: 09/13/2018 DISCHARGE DIAGNOSES: 1. Syncope. 2. Chronic obstructive pulmonary disease, compensated. PROCEDURES: None, but testing was numerous. He had a pulmonary arteriogram on admission, 09/10, that showed COPD and no other disease. Carotid Doppler 09/10, broad based plaque in proximal internal artery, but no flow issues. Mild stenosis which I think was felt to be 0 to 39%. Myocardial perfusion which was negative, and EF was 62% with symmetrical wall motions. Abdominal ultrasound negative on the . HOSPITAL COURSE: Briefly, patient admitted on the for syncope, unclear circumstances. He had right-sided chest pain. He had a fairly extensive workup. Cardiology was consulted, of course, and echocardiogram we discussed was EF 50% to 55% percent. There there was anterior septal hypokinesis. Cardiology was consulted. Dr. Kessler saw the patient on the and recommended echo and stress test for which I think he was observed. On the , I think he was felt to be stable for discharge. There were recommendations for an abdominal ultrasound which we pursued. That was also unrevealing. DISCHARGE CONDITION: Stable which I believe was on the . DISCHARGE INSTRUCTIONS: Recommend follow up with his PCP. Recommend follow up with gastroenterology for evaluation for possible GI cause. DISCHARGE MEDICATIONS: Warfarin 10 at bedtime. Prilosec 40 daily. Tramadol 50 q.6 p.r.n. pain. TIME SPENT: A 32-minute discharge. cc: MD Marty Mauricio MD
== END 2018-09-13 16:53 | disposition home or self-care (01) | DRG 312 ==
LOC: ED 12:22 → 3N 12:22 → SUATTDRO 16:28 → EDIPHOLD 16:37 → 3S 18:20
PROVIDERS: ATTEND Internal Medicine
CPT/HCPCS: 70450; 71020; 71046; 71275; 76700; 78452; 80048; 80053; 80061; 80101; 80301; 80307; 80324; 80345; 80346; 80353; 80358; 80361; 80365; 81001; 82550; 82553; 82607; 82746; 82805; 83721; 83735; 83880; 83992; 84439; 84443; 84484; 85025; 85027; 85610; 85730; 87088; 93005; 93010; 93017; 93306; 93880; 94640; 94761; 96361; 96365; 96366; 96375; 96376; 99285; A9270; A9500; C8929; C9113; G0431; G0434; G0479; G0480; J1170; J1644; J1650; J2270; J2785; J7030; Q9957; Q9967; S0164